=== PATIENT | male | born 1970 | race African-American/Black ===

== ENCOUNTER 2022-09-23 09:11 | Day surgery (SDC) | payer MEDICAID, OTHER ==
[~2022-09-23] VITALS: Ht 170.2 cm; Wt 78.5 kg
[~2022-09-23 09:11] MED LIST: ASPI-543 PO; CARV3.1240 PO; CLON0.2T PO; HYDR-4296 PO; NIFE10CA58 PO; SPIR25TA8 PO
[2022-09-23] MEDS ORDERED: HEPARIN SODIUM (PORCINE) 5000 UNITS/ML 1ML VIAL ONE (11:38)
[2022-09-23] MEDS ORDERED: ANGIOMAX 250 MG VIAL IV ONE (11:38)
[2022-09-23] MEDS ORDERED: MIDAZOLAM HCL 2MG/2ML 2ml VIAL (1mg/ml) ONE (11:38)
[2022-09-23] MEDS ORDERED: VERAPAMIL 2.5MG/ML INJ 2ML VIAL IV ONE (11:38)
[2022-09-23] MEDS ORDERED: fentaNYL CITRATE 100 MCG/2 ML VL ONE (11:38)
[2022-09-23] MEDS ORDERED: SODIUM CHL 0.9% 0 ML ONE (11:39)
[2022-09-23 12:10] VITALS: BP 145/108
[2022-09-23] MEDS ORDERED: AMLO1TAB22 PO (12:24)
[2022-09-23] MEDS ORDERED: ALBU108A5 IN (12:24)
[2022-09-23] MEDS ORDERED: AZEL0.1S (12:24)
[2022-09-23] MEDS ORDERED: MIRT1TAB40 PO (12:24)
[2022-09-23 12:25] VITALS: BP 159/109
[2022-09-23 12:41] VITALS: BP 164/124
[2022-09-23 13:41] VITALS: BP 156/115
[2022-09-23 13:56] VITALS: BP 158/116
== END 2022-09-23 14:20 | disposition home or self-care (01) ==
LOC: CATH 09:11
PROVIDERS: ATTEND Internal Medicine
DX: R94.31 Abnormal electrocardiogram [ECG] [EKG] (principal); R94.39 Abnormal result of other cardiovascular function study; I10 Essential (primary) hypertension; I21.4 Non-ST elevation (NSTEMI) myocardial infarction; I25.10 Atherosclerotic heart disease of native coronary artery without angina pectoris
CPT/HCPCS: 76937; 93458; C1725; C1894; J1644; J2250; J3010; J7030; 99152